=== PATIENT | female | born 1970 | race Caucasian/White ===

== ENCOUNTER 2023-12-09 09:34 | Outpatient (CLI) | payer OTHER, SELFPAY ==
--- NOTE | 2023-12-09 09:42 | ECG_ITS ---
Test Date: 2023-12-09 09:54:32 Measurements Intervals [place] Rate: 107 P: 63 [place]: 136 QRS: 42 QRSD: 97 T: 40 QT: 378 QTc: 506 Interpretive Statements SINUS TACHYCARDIA POSSIBLE LEFT ATRIAL ENLARGEMENT [-0.1mV P WAVE IN V1/V2] ABNORMAL RHYTHM ECG No previous ECG available for comparison Electronically Signed On 12-10-2023 12:54:30 CDT by Timo Viera M.D.
== END 2023-12-09 09:35 | disposition home or self-care (01) ==
LOC: ANHCARD 09:35
PROVIDERS: PCP Internal Medicine Gastroenterology; Visit Provider Anesthesiology
DX: I10 Essential (primary) hypertension (principal); R94.31 Abnormal electrocardiogram [ECG] [EKG]
CPT/HCPCS: 93005

== ENCOUNTER 2023-12-11 00:46 | Day surgery (SDC) | payer OTHER, SELFPAY ==
[2023-12-07 15:09] VITALS: BMI 29.5
--- NOTE | 2023-12-07 15:29 | PC.NURSE ---
Report to the Outpatient Waiting Room, entrance under the green pavilion located off [facility], at time _10:00AM_ on date _Monday12/11/23 . Planned Procedure Time: __12:00AM . Time changes happen often and if your time is changed the preop area will call you the afternoon before. - You and your visitor (MAX OF 2) will be asked to self-screen and do not enter if you have any COVID symptoms. - A mask is optional within the hospital at this time. Patients may have clear liquids (water, carbonated beverages, clear teas, apple juice) until 3 hours prior to surgery (9:00AM) with a maximum of 20 ounces. - No food from midnight until time of surgery - Take the following medications with a SIP of water the morning of surgery: __SERTRALINE DO NOT STOP ANY OF YOUR OTHER PRESCRIPTION MEDICATIONS PRIOR TO SURGERY ?EXCEPT THE FOLLOWING Medications to discontinue per physician NONE Date to take last dose____NONE Please no make-up, nail ivorian, hairspray, perfume, deodorant, or body powder the day of surgery. No jewelry (including any body piercings) or valuables the day of surgery, leave them at home. Please take a shower or bath the night before, or the morning of, surgery with an antibacterial soap. Wear comfortable, loose fitting clothing. - Jewelry must be removed prior to entering the operating room. Rings and piercings that are not removed may be cut off. - The hospital will not accept responsibility for valuables. - Please leave all valuables, including medications, at home the day of surgery. If you are going home after surgery, a licensed interstate bus driver must drive you home. - NO public transportation without another adult if you receive anesthesia. - We recommend that an adult stay with you for 24 hours following discharge. - We also recommend that you do not drive, make important decision, drink alcoholic beverages, or take any drugs that were not prescribed by your health care provider for at least 24 hours after your discharge time. Follow any additional instructions given to you from your surgeon. If you or anyone in your household have experienced Covid symptoms in the past week, please notify your surgeon or the nurse liaison at the phone number below for possible testing. Telephone instructions given to __HOLLIS and asked if any additional questions and then verbalized understanding. Patient advised to call surgeon office or pre surgery nurse liaison [phone] if any additional questions.
--- NOTE | 2023-12-10 23:58 | PM.IMHP ---
H&P: HPI History of Present Illness Date/Time: 12/10/23 23:58 Chief Complaint: retained IUD, desires permanent sterilization Narrative: Patient is a 53 year old female who presents for hysteroscopy with IUD removal and laparoscopic bilateral salpingectomy. She failed in office removal of IUD x2, and declines further trial of hormonal contraception. Recent bloodwork demonstrates pre-menopausal levels. Patient desires permanent sterilization with bilateral salpingectomy. R/b/a of procedure previously discussed. Review of Systems Review of Systems: All systems reviewed & are unremarkable except as noted in HPI and below PMFSH Social History Social History Smoking status: Never smoker Alcohol intake: never Substance use: never Substance use type: does not use Living arrangements: with family Spiritual care concerns: No Meds Home Medications and Allergies Home Medications Medication Instructions Recorded Confirmed Type cyclobenzaprine 10 mg tablet 10 mg PO HS 12/07/23 12/07/23 History famotidine 20 mg tablet 20 mg PO BID 12/07/23 12/07/23 History losartan 50 mg tablet 50 mg PO DAILY 12/07/23 12/07/23 History montelukast 10 mg tablet 10 mg PO DAILY 12/07/23 12/07/23 History sertraline 100 mg tablet 100 mg PO DAILY 12/07/23 12/07/23 History simvastatin 40 mg tablet 40 mg PO HS 12/07/23 12/07/23 History Allergies Allergy/AdvReac Type Severity Reaction Status Date / Time codeine Allergy Unknown Unknown Verified 12/07/23 15:29 Exam Const: General: comfortable and no acute distress HENMT: Mouth: Yes moist mucous membranes Resp: Effort & Inspection: normal respiratory effort Skin: General skin exam: normal color Extrem: General: normal to inspection Psych: Mental Status: mental status grossly normal Assessment and Plan Assessment and plan (1) IUD complication: Code(s): T83.9XXA - Unspecified complication of genitourinary prosthetic device, implant and graft, initial encounter Status: Acute Assessment and Plan: - failed in office removal of IUD x2 - will attempt hysteroscopic IUD removal - r/b/a discussed with patient (2) Encounter for sterilization: Code(s): Z30.2 - Encounter for sterilization Status: Acute Assessment and Plan: - recent bloodwork demonstrates likely premenopausal status - patient declines further hormonal contraception, desires permanent sterilization - r/b/a discussed with patient, including permanence of procedure and likely resumption of menses postoperatively - patient voices understanding and elects to proceed with hysteroscopic removal of IUD and laparoscopic bilateral salpingectomy
[2023-12-11] VITALS (8 sets, daily range): BP systolic 107–140; BP diastolic 66–99; PULSE 93–118; RESP 12–18; TEMP 36.1–36.2; O2SAT 93–100; BMI 29.9
--- NOTE | 2023-12-11 10:23 | ECG_ITS ---
Test Date: 2023-12-11 10:33:46 Measurements Intervals [place] Rate: 105 P: 47 [place]: 155 QRS: 18 QRSD: 97 T: 23 QT: 373 QTc: 494 Interpretive Statements SINUS TACHYCARDIA POSSIBLE LEFT ATRIAL ENLARGEMENT [-0.1mV P WAVE IN V1/V2] ABNORMAL RHYTHM ECG Compared to ECG 12/09/2023 09:54:32 NO DIFFERENCE Electronically Signed On 12-11-2023 15:22:54 CDT by Faustino White M.D.
--- NOTE | 2023-12-11 10:28 | P.PNAN_ITS ---
Anes - Initial Pre Proc Eval Procedure: Operation Date: 12/11/23 12:00 Proposed Procedures p Hysteroscopy with Removal of Foreign Body, Laparoscopic Bilateral Salpingectomy - Mohamud Márquez MD Date/Time: 12/11/23 10:28 Surgeon: Mohamud Márquez MD Pre Op Diagnosis: Intrauterine Contraceptive Device, SITU Patient Data Age: 53 Gender: F Height: 1.63 m Weight: 78 kg Allergies Allergy/AdvReac Type Severity Reaction Status Date / Time codeine Allergy Unknown Unknown Verified 12/07/23 15:29 Home Medications Medication Instructions Recorded Confirmed Type cyclobenzaprine 10 mg tablet 10 mg PO HS 12/07/23 12/07/23 History famotidine 20 mg tablet 20 mg PO BID 12/07/23 12/07/23 History losartan 50 mg tablet 50 mg PO DAILY 12/07/23 12/07/23 History montelukast 10 mg tablet 10 mg PO DAILY 12/07/23 12/07/23 History sertraline 100 mg tablet 100 mg PO DAILY 12/07/23 12/07/23 History simvastatin 40 mg tablet 40 mg PO HS 12/07/23 12/07/23 History Patient hx anesthesia problems: none Family hx anesthesia problems: none Results Review: All pre-operative results and documents have been reviewed as part of the pre- operative evaluation. [facility] Social History Social History Smoking status: Never smoker Alcohol intake: never Substance use: never Substance use type: does not use Living arrangements: with family Spiritual care concerns: No Anes - Eval Final PreProcedure Day of Procedure 12/11/23 10:28 Patient weight: normal Heart: regular rate and rhythm Lungs: clear to auscultation Airway: Mallampati scale and special considerations (Teeth in very poor condition, missing many upper teeth, pt reports none are loose. ) Neurological: alert and oriented Last oral intake: >/= 8 hours ASA classification: II Emergent: no Anesthetic plan: proceed Anesthesia type and monitoring: general ETT and standard monitoring Results Review: All pre-operative results and documents have been reviewed as part of the pre- operative evaluation. Informed Consent: The patient's anesthetic plan and its attendant risks and benefits were discussed with the patient/family/POA. Questions were solicited and answers provided to the satisfaction of the patient/family/POA.
[2023-12-11] MEDS: LACTATED RINGERS 1,000 ML 30 ML IV CONT ×2 (11:00→12:25)
[2023-12-11] MEDS: ACETAMINOPHEN 500 MG TABLET 1000 MG PO (11:06)
[2023-12-11] MEDS: KETOROLAC 15 MG/ML VIAL (*BKC) IV PUSH (11:06)
--- NOTE | 2023-12-11 11:12 | WPDHPUPDATE1 ---
History and Physical Update Update Date/Time: 12/11/23 11:12 History and Physical has been reviewed, including an updated exam of the patient. There are NO changes in the patient's condition. Risks, benefits, and alternatives have been discussed and questions answered. Patient agrees to proceed with procedure.
--- NOTE | 2023-12-11 11:24 | P.OP_ITS ---
Procedure Note - Detailed Date of Procedure 12/11/23 Pre-op Diagnosis retained IUD failed removal, desires permanent sterilization Post-op Diagnosis Same Procedure Performed hysteroscopy, removal of IUD, laparoscopic bilateral salpingectomy Surgeon Mohamud Márquez MD Anesthesia General Description of Procedure With IV fluids infusing, the patient was taken to the operating room. The patient was placed in supine position and SCDs were placed on the lower extremities. General anesthesia with endotracheal intubation was given. A time- out took place. The patient was placed in dorsal lithotomy position using Gab stirrups and she was prepped and draped in the usual sterile fashion. The bladder was drained of clear urine using a red rubber catheter. A bivalved speculum was then inserted into the patient's vagina. At this point, the hysteroscope was then inserted into the uterine cavity. Saline was used as the distension medium. The above findings were noted. Pictures were taken.?The IUD was grasped with polyp forceps and removed intact from the uterine cavity. An acorn manipulator was placed in the cervix, and the bivalve speculum was then removed.?The surgeon's gloves were changed and attention was turned to the abdomen. A 5 mm incision was made in the umbilicus. Under direct visualization with the scope, the umbilical port was inserted without difficulty. Another two trocars were placed under direct visualization in the left upper and lower quadrants. The patient was placed in Trendelenburg and inspection of the pelvis noted the above findings. Appropriate pictures were taken. Using the LigaSure devise, a left salpingectomy was performed in the usual fashion. Care was taken to avoid the IP ligament. The same procedure was performed on the right. The instruments were all removed from the abdomen and the CO2 gas was allowed to escape. The acorn manipulator was removed from the cervix. The tenaculum was removed and the sites were hemostatic. The three skin incisions were reapproximated with 4-0 Polysorb in a subcuticular manner, followed by skin glue. The patient tolerated the procedure well.? Sponge, lap, needle, and instrument counts were correct X3.? The patient was taken out of the dorsal lithotomy position and awakened from anesthesia and taken to the recovery room in stable condition. Estimated Blood Loss 10 Pathology Yes Complications No immediate complications Condition Stable Disposition Same day
[2023-12-11] MEDS: LIDO 1%/EPINEPHRINE 1:100,000 20 ML VIAL 10 ML INFILTRATE (11:49)
== END 2023-12-11 14:30 | disposition home or self-care (01) ==
PROVIDERS: PCP Internal Medicine Gastroenterology; Visit Provider Obstetrics & Gynecology
PROC: 0UDB8ZZ Extraction of Endometrium, Via Natural or Artificial Opening Endoscopic (ICD-10-PCS; CPT 58558; principal; 2023-12-11 12:00)
DX: Z30.2 Encounter for sterilization (principal); Z30.432 Encounter for removal of intrauterine contraceptive device
CPT/HCPCS: 58579; 58661; 88300; 88302; 93005; A9270; J1100; J1885; J2250; J2405; J2704; J3010; J7120

== ENCOUNTER 2025-06-12 18:00 | Observation (INO) | payer OTHER, SELFPAY ==
--- NOTE | ~2025-06-12 | US_ITS ---
EXAMINATION: US pelvic complete w TV, 06/13/2025 8:25 CMA HISTORY: Vaginal bleeding Comparison: None Technique: Suarez-scale and color Doppler images were obtained. Findings: Uterus: Uterus anteverted 13.4 x 3.9 x 7.6 cm. . Endometrium is thickened measuring 2 cm with areas of increased flow noted. Right Ovary:Right ovary not identified. Left Ovary: Left ovary 2.8 x 1.3 x 1.5 cm, no adnexal mass, normal flow. Free Fluid: None Impression: Abnormally thickened endometrium with areas of abnormal flow, neoplasm should be considered. Tissue sampling recommended Reviewed, dictated and finalized at location P. Impression: Abnormally thickened endometrium with areas of abnormal flow, neoplasm should b e considered. Tissue sampling recommended
[2025-06-12 15:08] VITALS: BMI 28.3
--- NOTE | 2025-06-12 15:26 | PC.NURSE ---
Provider notified of pt's arrival to hospital and her room number.
--- OUTSIDE RECORDS SUMMARY | 2025-06-12 15:31 | XMS_ITS | Clinical Summary ---
Author Organization [facility] Address [address] [place] [address] Care Team Providers Care Insulation Cupola Operator Name Role Phone [facility] Primary Care Provider Source Comments [facility],non-owned Affiliates and Associated Physician Practices is amultiple site organization consisting of ambulatory clinics and hospital sitesin [place], [place], [place]. This disclosure is being madepursuant to the Care Everywhere program and may not contain all information available regarding this patient. Last updated 18.[facility] Allergies No known active allergies Medications * Be aware that medications may not be up to date on this document. Alwaysverify current medications with the patient. famotidine (Pepcid) 40 MG tabletIndicati ons:Heartburn Take 1 (one) tablet by mouth at bedtime Reasons: Heartburn Active montelukast (Singulair) 10 MG tablet Take 1 (one) tablet by mouth at bedtime Active simvastatin (Zocor) 40 MG tabletIndicati ons:Hyperlipid emia Take 1 (one) tablet by mouth at bedtime Reasons: High Amount of Fats in the Blood Active sertraline (Zoloft) 100 MG tablet Take 1 (one) tablet by mouth once daily Active cyclobenzaprin e (Flexeril) 10 MG tablet Take 1 (one) tablet by mouth 3 times daily as needed for muscle spasms Active medroxyPROGEST ERone (Provera) 10 MG tablet Take 1 (one) tablet by mouth once daily 60 tablet 2 5 Active tranexamic acid (Lysteda) 650 MG tablet Take 2 (two) tablets by mouth 3 times daily Take two tablets every 8 hours for the first 5 days of your period 28 tablet 2 5 Active ibuprofen (Motrin) 800 MG tabletIndicati ons:Fibromylgi a Take 1 (one) tablet by mouth every 6 hours as needed for pain Reasons: Fibromylgia 06/06/20 25 Discontin ued(Tx Complete) Active Problems Problem Noted Date Diagnosed Date Vaginal bleeding 06/05/2025 Symptomatic anemia 06/05/2025 Encounters Date Type Department Care Team Description 06/05/2025 9:11 PM NON DESTRUCTIVE TESTING SUPERVISOR - 06/06/2025 4:43 PM NON DESTRUCTIVE TESTING SUPERVISOR Hospital Encounter [facility] [address] [place] [address] Dina Guillaume MD Gynecology Discharge Disposition: Home or Self Care 06/05/2025 Travel from Last 3 Months Social History Tobacco Use Types Packs/Day Years Used Date Smoking Tobacco: Never Passive Smoke Exposure: Never Smokeless Tobacco: Never Tobacco Cessation:Counseling Given: No Alcohol Use Standard Drinks/Week Comments Never 0 (1 standard drink = 0.6 oz pur e alcohol) Humiliation, Afraid, Rape, and Kick questionnair e Answer Date Recorded Within the last year, have y ou been afraid of your partner or ex-partner? No 06/05/2025 Within the last year, have y ou been humiliated or emotionally abused in other ways by your partner or ex-partner? No Within the last year, have y ou been kicked, hit, slapped, or otherwise physically hurt by your partner or ex-partner? No 06/05/2025 Within the last year, have y ou been raped or forced to have any kind of sexual activity by your partner or ex-partner? No 06/05/2025 AUDIT-C Answer Date Recorded Q1: How often do you have a drink containing alcohol? Never 06/05/2025 Q2: How many drinks containi ng alcohol do you have on a typical day when you are drinking? Patient does not drink Q3: How often do you have si x or more drinks on one occasion? Never 06/05/2025 [facility] - Occupational Stress Questionnaire Answer Date Recorded Do you feel stress - tense, restless, nervous, or anxious, or unable to sleep at night because your mind is troubled all the time - these days? To some extent 06/05/2025 Hunger Vital Sign Answer Date Recorded Within the past 12 months, y ou worried that your food would run out before you got the money to buy more. Never true 06/05/20 25 Within the past 12 months, t he food you bought just didn't last and you didn't have money to get more. Never true 06/05/2025 PRAPARE - Transportation Answer Date Re corded In the past 12 months, has l ack of transportation kept you from medical appointments or from getting medications? No 05/26 In the past 12 months, has l ack of transportation kept you from meetings, work, or from getting things needed for daily living? No 06/05/2025 Housing Stability Vital Sign Answer Asif e Recorded In the last 12 months, was t here a time when you were not able to pay the mortgage or rent on time? No 06/05/2025 In the past 12 months, how m any times have you moved where you were living? 0 06/05/2025 At any time in the past 12 m [facility], were you homeless or living in a group home (including now)? No 06/05/2025 [facility] Utilities Answer Date Recorded In the past 12 months has th e electric, gas, oil, or water company threatened to shut off services in your home? No 06/05/2025 Comments Unknown Sex and Gender Information Value Date Recorded Sex Assigned at Not on file Legal Sex Female 7:03 AM CDT Gender Identity Not on file Sexual Orientation Not on file Last Filed Vital Signs Vital Sign Reading Time Taken Comments Blood Pressure 117/84 06/06/2025 12:17 PM NON DESTRUCTIVE TESTING SUPERVISOR Pulse 116 06/06/2025 12:17 PM NON DESTRUCTIVE TESTING SUPERVISOR Temperature 36.9 C (98.4 F) 06/06/2025 12:17 PM NON DESTRUCTIVE TESTING SUPERVISOR Respiratory Rate 18 06/06/2025 12:17 PM NON DESTRUCTIVE TESTING SUPERVISOR Oxygen Saturation 95% 06/06/2025 12:17 PM NON DESTRUCTIVE TESTING SUPERVISOR Inhaled Oxygen Concentration - - Weight 77.2 kg (170 lb 4.8 oz) 06/05/2025 9:23 P M NON DESTRUCTIVE TESTING SUPERVISOR Height 165 cm (5' 4.96) 06/05/2025 9:23 PM NON DESTRUCTIVE TESTING SUPERVISOR Body Mass Index 28.37 06/05/2025 9:23 PM NON DESTRUCTIVE TESTING SUPERVISOR Plan of Treatment Health Maintenance Due Date Last Done Comments COLOGUARD (AGES 45-75) - COL ON CA SCREENING 1972 COLON MONITORING 1972 COLONOSCOPY - COLON CA SCREENING 1972 CT COLONOGRAPHY - COLON CA SCREENING 1972 Colorectal Cancer Screening 1972 FIT - COLON CA SCREENING 1972 FLEX SIG - COLON CA SCREENING 1972 MAMMOGRAM 1972 HIV SCREENING 1987 HEPATITIS C SCREENING 03/05/1990 DTAP/TDAP/TD VACCINES (1 - Tdap) 1991 HEPATITIS B VACCINE (1 of 3 - 19+ 3-dose series) 1991 PAP SMEAR 1993 PNEUMOCOCCAL VACCINE 50+ (1 of 1 - PCV) 2022 ZOSTER VACCINE (1 of 2) 2022 DEPRESSION SCREENING 06/26/2024 COVID-19 VACCINE (1 - 2024-2 6 season) 2025 INFLUENZA VACCINE (#1) 2025 HIB VACCINE Aged Out No longer eligi ble based on patient's age to complete this topic HPV VACCINE Aged Out No longer eligi ble based on patient's age to complete this topic MENINGOCOCCAL (Group B) VACC INE SHARED DECISION-MAKING Aged Out No longer eligibl e based on patient's age to complete this topic MENINGOCOCCAL GROUPS A/C/Y/W VACCINE Aged Out No longer eligible b ased on patient's age to complete this topic Procedures Procedure Name Priority Date/Time Associated Diagnosis Comments CBC W AUTO DIFFERENTIAL Routine 06/06/2025 11:52 AM NON DESTRUCTIVE TESTING SUPERVISOR US PELVIS W TRANSVAG NON OB Routine 06/06/2025 10:26 AM NON DESTRUCTIVE TESTING SUPERVISOR Vaginal bleeding TYPE + SCREEN PANEL STAT 06/06/2025 2 :17 AM NON DESTRUCTIVE TESTING SUPERVISOR PREPARE RBC LEUKOREDUCED UNIT Routine 06/06/2025 2:17 AM NON DESTRUCTIVE TESTING SUPERVISOR BLOOD TYPE VERIFICATION Routine 06/06/2025 12:25 AM NON DESTRUCTIVE TESTING SUPERVISOR COAGULATION PANEL W D-DIMER STAT 06/06/2025 12:25 AM NON DESTRUCTIVE TESTING SUPERVISOR CBC W/O DIFFERENTIAL AM Draw 06/06/2025 12:25 AM NON DESTRUCTIVE TESTING SUPERVISOR from Last 3 Months Results * (ABNORMAL) CBC W AUTO DIFFERENTIAL (06/06/2025 11:52 AM NON DESTRUCTIVE TESTING SUPERVISOR) WBC 12.1(H) 4.0 - 10.7 x10E9/L 06/06/2025 12:38 PM NON DESTRUCTIVE TESTING SUPERVISOR [facility] RBC Count 3.13(L) 3.90 - 5.20 x10E12/L 06/06/2025 12:38 PM NON DESTRUCTIVE TESTING SUPERVISOR [facility] Hemoglobin 8.2(L) 11.9 - 15.8 g/dL 06/06/2025 12:38 PM NON DESTRUCTIVE TESTING SUPERVISOR [facility] Hematocrit 25.2(L) 34.8 - 46.1 % 06/06/2025 12:38 PM NON DESTRUCTIVE TESTING SUPERVISOR [facility] MCV 80.5 80.0 - 98.0 fL 06/06/2025 12:38 PM NON DESTRUCTIVE TESTING SUPERVISOR [facility] MCH 26.2(L) 26.7 - 33.6 pg 06/06/2025 12:38 PM NON DESTRUCTIVE TESTING SUPERVISOR [facility] MCHC 32.5 31.7 - 36.3 g/dL 06/06/2025 12:38 PM NON DESTRUCTIVE TESTING SUPERVISOR [facility] RDW-CV 18.0(H) 11.3 - 14.8 % 06/06/2025 12:38 PM NON DESTRUCTIVE TESTING SUPERVISOR [facility] Platelet Count 273 150 - 420 x10E9/L 06/06/2025 12:38 PM NON DESTRUCTIVE TESTING SUPERVISOR [facility] MPV 10.1 7.8 - 11.4 fL 06/06/2025 12:38 PM NON DESTRUCTIVE TESTING SUPERVISOR [facility] Neutrophil % 73.8 41.0 - 74.0 % 06/06/2025 12:38 PM NON DESTRUCTIVE TESTING SUPERVISOR [facility] Lymphocyte % 17.7 17.0 - 47.0 % 06/06/2025 12:38 PM NON DESTRUCTIVE TESTING SUPERVISOR [facility] Monocyte % 6.8 3.0 - 11.0 % 06/06/2025 12:38 PM NON DESTRUCTIVE TESTING SUPERVISOR [facility] Eosinophil % 0.8 0.0 - 7.0 % 06/06/2025 12:38 PM NON DESTRUCTIVE TESTING SUPERVISOR [facility] Basophil % 0.2 0.0 - 1.6 % 06/06/2025 12:38 PM NON DESTRUCTIVE TESTING SUPERVISOR [facility] Immature Granulocytes % 0.7 0.0 - 1.0 % 06/06/2025 12:38 PM NON DESTRUCTIVE TESTING SUPERVISOR [facility] Neutrophil Absolute 8.90(H) 1.60 - 7.50 x10E9/L 06/06/2025 12:38 PM NON DESTRUCTIVE TESTING SUPERVISOR [facility] Lymphocyte Absolute 2.13 1.00 - 4.40 x10E9/L 06/06/2025 12:38 PM NON DESTRUCTIVE TESTING SUPERVISOR [facility] Monocyte Absolute 0.82 0.15 - 1.00 x10E9/L 06/06/2025 12:38 PM NON DESTRUCTIVE TESTING SUPERVISOR [facility] Eosinophil Absolute 0.10 0.00 - 0.60 x10E9/L 06/06/2025 12:38 PM NON DESTRUCTIVE TESTING SUPERVISOR [facility] Basophil Absolute 0.03 0.00 - 0.13 x10E9/L 06/06/2025 12:38 PM NON DESTRUCTIVE TESTING SUPERVISOR [facility] Blood BLOOD SPECIMEN / Unknown Lab Venipuncture / Unknown 06/06/2025 11:52 AM NON DESTRUCTIVE TESTING SUPERVISOR 06/06/2025 12:31 PM NON DESTRUCTIVE TESTING SUPERVISOR us Dina Guillaume MD LAB - HEMATOLOGY ORDERABLES Fin al Result Performing Organization Address City/State/[facility] Co de Phone Number [facility] [address] [phone] * US Pelvis W Transvag Non Ob (06/06/2025 10:26 AM NON DESTRUCTIVE TESTING SUPERVISOR) Anatomical Region Laterality Modality Pelvis Ultrasound 06/06/2025 10:3 4 AM NON DESTRUCTIVE TESTING SUPERVISOR Impressions 06/06/2025 10:37 AM NON DESTRUCTIVE TESTING SUPERVISOR IMPRESSION: Within normal limits. > Interpreting Provider: Alexsander Duggan MD on 06/06/2025 10:37 AM Narrative 06/06/2025 10:37 AM NON DESTRUCTIVE TESTING SUPERVISOR PROCEDURE: US PELVIS W TRANSVAG NON OB DATE/TIME OF EXAM: 06/06/2025 10:26 AM CLINICAL INFORMATION: None relevant/not provided if blank. Indication: N93.9: Vaginal bleeding EXAMINATIONS: 1. TRANSABDOMINAL AND ENDOVAGINAL PELVIC ULTRASOUND 2. LIMITED COLOR DOPPLER AND LIMITED SPECTRAL DOPPLER IMAGING HISTORY: This is a 55-year-old whose LMP was 06/02/2025 and complains of heavy menstrual bleeding. N93.9: Vaginal bleeding TECHNIQUE: Real time transabdominal and transvaginal pelvic ultrasound was performed by the optical effects layout person with DICOM image capture. Grayscale images were obtained; additionally, Color Doppler and pulse wave Spectral Doppler interrogation was performed and interpreted. COMPARISON: None. CORRELATION: None. FINDINGS: The bladder is appropriately distended and appears unremarkable on transabdominal images providing a proper window for imaging of the pelvis. The anteverted uterus is normal on the transabdominal images. There are multiple large nabothian cysts in the cervix, best seen on the transabdominal images. The ovaries and adnexa are not well seen on the transabdominal images. On the transvaginal images, the myometrium is normal without visible leiomyomata. The cervix is closed and appears normal. There is no fluid in the uterine cavity or in the cervical canal. The thickness of endometrial stripe is normal and the endometrial stripe demonstrates homogeneous appearance. Both ovaries are visible on the transvaginal images and appear normal containing multiple subcentimeter follicles. The largest follicle is on the left side measuring 1.2 x 0.8 x 0.8 cm with anechoic appearance. There is no free fluid in the pelvis. Measurements: Uterus: 14.7 x 5.7 x 8.6 cm Thickness of endometrial stripe: 2.9 mm Right ovary: 2.5 x 1.1 x 1.6 cm Left ovary: 3.3 x 1.3 x 1.3 cm Procedure Note Alexsander Duggan MD - 06/06/2025 PROCEDURE: US PELVIS W TRANSVAG NON OB DATE/TIME OF EXAM: 06/06/2025 10:26 AM CLINICAL INFORMATION: None relevant/not provided if blank. Indication: N93.9: Vaginal bleeding EXAMINATIONS: 1. TRANSABDOMINAL AND ENDOVAGINAL PELVIC ULTRASOUND 2. LIMITED COLOR DOPPLER AND LIMITED SPECTRAL DOPPLER IMAGING HISTORY: This is a 55-year-old whose LMP was 06/02/2025 andcomplains of heavy menstrual bleeding. N93.9: Vaginal bleeding TECHNIQUE: Real time transabdominal and transvaginal pelvic ultrasoundwas performed by the optical effects layout person with DICOM image capture. Grayscale images were obtained; additionally, Color Doppler and pulse wave SpectralDoppler interrogation was performed and interpreted. COMPARISON: None. CORRELATION: None. FINDINGS: The bladder is appropriately distended and appears unremarkable on transabdominal images providing a proper window for imaging of thepelvis. The anteverted uterus is normal on the transabdominal images. There are multiple large nabothian cysts in the cervix, best seen on the transabdominal images. The ovaries and adnexa are not well seen on the transabdominal images. On the transvaginal images, the myometrium is normal without visible leiomyomata. The cervix is closed and appears normal. There is no fluidin the uterine cavity or in the cervical canal. The thickness ofendometrial stripe is normal and the endometrial stripe demonstrates homogeneous appearance. Both ovaries are visible on the transvaginal images and appear normal containing multiple subcentimeter follicles. The largest follicle is onthe left side measuring 1.2 x 0.8 x 0.8 cm with anechoic appearance. Thereis no free fluid in the pelvis. Measurements: Uterus: 14.7 x 5.7 x 8.6 cm Thickness of endometrial stripe: 2.9 mm Right ovary: 2.5 x 1.1 x 1.6 cm Left ovary: 3.3 x 1.3 x 1.3 cm IMPRESSION: Within normal limits. > Interpreting Provider: Alexsander Duggan MD on 06/06/2025 10:37 AM Dina Guillaume MD US ORDERABLES Final Result * TRANSFUSE RED BLOOD CELL LEUKOREDUCED UNIT(S) (06/06/2025 7:21 AM NON DESTRUCTIVE TESTING SUPERVISOR) us Dina Guillaume MD NURSING - BLOOD PROD TRANSFUSIO N Final Result * PREPARE (CROSSMATCH) RBC UNIT(S), 1 Units (06/06/2025 2:17 AM NON DESTRUCTIVE TESTING SUPERVISOR) Unit Description AS1 LR PRBC [facility] Unit ABO A [facility] Unit Rh POS [facility] Product Number R02 [facility] Unit Donor # [id number] [facility] Unit Status transfused [facility] Product Code [id number] [facility] Blood Type Barcode 6200 [facility] Expiration Date [id number] [facility] Blood Bank BLOOD SPECIMEN / Unknown 06/06/2025 2:17 AM NON DESTRUCTIVE TESTING SUPERVISOR 06/06/2025 3:07 AM NON DESTRUCTIVE TESTING SUPERVISOR Dina Guillaume MD LAB - BLOOD BANK ORDERABLES Fin al Result Performing Organization Address City/[facility]/ZIP Co de Phone Number [facility] [address] [place] [address] * TYPE + SCREEN PANEL (06/06/2025 2:17 AM NON DESTRUCTIVE TESTING SUPERVISOR) ABO Rh A POS 06/06/2025 3:45 AM NON DESTRUCTIVE TESTING SUPERVISOR [facility] Comment:History checked. Antibody Screen NEG 3:45 AM NON DESTRUCTIVE TESTING SUPERVISOR [facility] Blood Bank BLOOD SPECIMEN / Unknown Lab Venipuncture / Unknown 06/06/2025 2:17 AM NON DESTRUCTIVE TESTING SUPERVISOR 06/06/2025 3:07 AM NON DESTRUCTIVE TESTING SUPERVISOR Dina Guillaume MD LAB - BLOOD BANK ORDERABLES Fin al Result Performing Organization Address [facility] Co de Phone Number [facility] [address] [place] [address] * BLOOD TYPE VERIFICATION (06/06/2025 12:25 AM NON DESTRUCTIVE TESTING SUPERVISOR) ABO Rh A POS 06/06/2025 3:3 4 AM NON DESTRUCTIVE TESTING SUPERVISOR [facility] Blood Bank BLOOD SPECIMEN / Unknown Lab Venipuncture / Unknown 06/06/2025 12:25 AM NON DESTRUCTIVE TESTING SUPERVISOR 06/06/2025 1:56 AM NON DESTRUCTIVE TESTING SUPERVISOR Dina Guillaume MD LAB - BLOOD BANK ORDERABLES Fin al Result Performing Organization Address City/[facility] Co de Phone Number [facility] [address] [place] [address], [place] [phone] * (ABNORMAL) COAGULATION PANEL W D-DIMER (06/06/2025 12:25 AM [facility]) PT 16.1(H) 12.1 - 14.8 sec 06/06/2025 2:[address] [facility] INR 1.3(H) 0.9 - 1.1 06/06/2025 2:[address] [facility] PTT 24.0 23.0 - 38.4 sec 06/06/2025 2:[address] [facility] Fibrinogen 321 200 - 400 mg/dL 06/06/2025 2:[address] [facility] D-Dimer 0.66(H) 0.27 - 0.50 ug/mL FEU 06/06/2025 2:[address] [facility] Platelet Count 289 150 - 420 x10E9/L 06/06/2025 2:[address] [facility] Blood BLOOD SPECIMEN / Unknown Lab Venipuncture / Unknown 06/06/2025 12:25 AM NON DESTRUCTIVE TESTING SUPERVISOR 06/06/2025 1:35 AM [facility] - 06/06/2025 2:21 AM [facility] Conventional Warfarin Anticoagulant Therapy INR Reference Range: 2.0-3.0 Intensive Warfarin Anticoagulant Therapy INR Reference Range: 2.5-3.5 Heparin Therapeutic Range for PTT: 69.0 - 110.0 seconds. In the absence of clinical symptoms, a value less than or equal to 0.5 mcg/mL FEU significantly decreases the probability of PE/DVT (negative predictive value >95%). 1 mcg/ml FEU = 1 Fibrinogen Equivalent Unit (approximates 0.5 mcg/mL of D- dimer). ISTH DIAGNOSTIC SCORING SYSTEM FOR DIC ---- Score 0 1 2 3 Platelet Count (x10^3/uL) > 100 <100 < 50 N/A PT Prolongation above Upper limit of normal 0-3 3-6 > 6 N/A Range (seconds) Fibrinogen (mg/dL) >100 < 100 N/A N/A D-Dimer (mcg/mL FEU) < 0.50 N/A 0.50-5.0 > 5 Calculate Cumulative Score: > or = 5: compatible with overt DIC < 5: suggestive for non-overt DIC N/A = Non applicable Reference: Br. J. Haematol. 145:24-33,2009. us Dina Guillaume MD LAB - COAGULATION ORDERABLES Fi nal Result [facility] [address] [place] [address] * (ABNORMAL) CBC W/O DIFFERENTIAL (06/06/2025 12:25 AM [facility]) WBC 13.9(H) 4.0 - 10.7 x10E9/L 06/06/2025 1:[address] [facility] RBC Count 2.74(L) 3.90 - 5.20 x10E12/L 06/06/2025 1:[address] [facility] Hemoglobin 7.1(L) 11.9 - 15.8 g/dL 06/06/2025 1:[address] [facility] Hematocrit 22.9(L) 34.8 - 46.1 % 06/06/2025 1:[address] [facility] MCV 83.6 80.0 - 98.0 fL 06/06/2025 1:[address] [facility] MCH 25.9(L) 26.7 - 33.6 pg 06/06/2025 1:[address] [facility] MCHC 31.0(L) 31.7 - 36.3 g/dL 06/06/2025 1:[address] [facility] RDW-CV 17.2(H) 11.3 - 14.8 % 06/06/2025 1:[address] [facility] Platelet Count 285 150 - 420 x10E9/L 06/06/2025 1:[address] [facility] MPV 10.7 7.8 - 11.4 fL 06/06/2025 1:[address] [facility] Blood BLOOD SPECIMEN / Unknown Lab Venipuncture / Unknown 06/06/2025 12:25 AM NON DESTRUCTIVE TESTING SUPERVISOR 06/06/2025 1:35 AM [facility] us Dina Guillaume MD LAB - HEMATOLOGY ORDERABLES Fin al Result [facility] [address] [place] [address] from Last 3 Months Insurance [employer] [facility] [employer] * Guarantor: HOLLIS CURTIS Relation to Patient Date of Phone Billing Address Personal/Family [address] [place], [place] [employer] SELF PAY NO INSURANCE Member Subscriber Plan / Payer (Ef fective for All Dates) Name:Hollis Curtis Member ID:Not on file Relation to Subscriber:Not on file Name:HOLLIS CURTIS Subscriber ID:Not on file Address: [address] [place] [address] Payer ID:Not on file Group ID:Not on file Type:Self Pay Address: [place], [place] * Guarantor: HOLLIS CURTIS Account Type Relation to Patient Date of Phone Billing Address Personal/Family [address] [place], [place] [employer] SELF PAY NO INSURANCE Member Subscriber Plan / Payer (Ef fective for All Dates) Name:Hollis Curits Member ID:Not on file Relation to Subscriber:Not on file Name:HOLLIS CURTIS Subscriber ID:Not on file Address: [address] [place] [address] Payer ID:Not on file Group ID:Not on file Type:Self Pay Address: [place], [place] * Guarantor: HOLLIS CURTIS Account Type Relation to Patient Date of Phone Billing Address Personal/Family [address] [place] [address] [employer] SELF PAY NO INSURANCE Member Subscriber Plan / Payer (Ef fective for All Dates) Name:Hollis Curtis Member ID:Not on file Relation to Subscriber:Not on file Name:HOLLIS CURTIS Subscriber ID:Not on file Address: [address] [place] [address] Payer ID:Not on file Group ID:Not on file Type:Self Pay Address: [place], [place] * Guarantor: HOLLIS CURTIS Account Type Relation to Patient Date of Phone Billing Address Personal/Family [address] [place] [address] Advance Directives * Full Code (Latest Code Status on File) Date Activated Date Inactivated Comments 06/05/2025 9:32 PM 06/06/2025 5:53 PM Care Teams Insulation Cupola Operator Relationship Specialty Start Date End Date [facility] [address] [place] [address] PCP - General Family Medicine 06/05/25
--- OUTSIDE RECORDS SUMMARY | 2025-06-12 15:32 | XMS_ITS | Data Portability ---
Author Organization [facility] Address [address] [place] [address] Care Team Providers Care Operations/Dispatch Name Role Phone BAMBI FRANK Primary Care Provider Assessment Encounter Date Assessment Date Assessment LastModified by Organization Details LastModified Time 04/11/2025 04/11/2025 Annual gynecological exam performed. Patient will come back in a year unless there are new symptoms. [email or web address] Not available 04/11/2025 11:34:52 Plan of Treatment Reminders Order Date Submit Date Provider Last Modified By Organization Details Last Modified Time Details Appointments CONSULTAT ION 2024 10:00A Christina STONE MD Not available Not available Not available Lab hormone panel, serum or plasma 2023 024 [facility] (Lab), [address], [place], [address], 10/12/2023 04:57:05 Referral None recorded. Procedures None recorded. Surgeries hysterosc opy, removal of foreign body (SURG) 2023 024 [id number] [facility], [address], [place], [address], 11/09/2023 10:17:33 salpingec glen, laparosco pic (SURG) 2023 024 [id number] [facility], [address], [place], [address], 11/17/2023 17:24:28 Imaging MAMMO, screening , digital, bilateral 10/17/ 2025 10/17/2 025 [facility] (Imaging), [address], [place], [address], 04/18/2025 04:07:52 Medication Orders norethind jean acetate 5 mg tablet 2024 025 [email or web address] [id number], [address], [place], [address], 04/11/2025 13:58:59 Patient TargetsNo targets recorded. Patient InstructionsNo instructions recorded. Reason for Referral None Reported. Results Created Date Observation Date Name Description Value Unit Range Abnormal Flag Note LastModifiedBy Organization Detail LastModifiedTime 10/11/1910/11/2023 FSH, LH, ESTRA DIOL estradiol 337.0 pg/mL This assay was perfo rmed using [employer] reage nts and test kits. Value s obtai roni with other assay metho ds or kits canno t be used inter alvaraod eay . Femal e Estra diol Range s: Folli cular phasE 12.4- 233 pg/mL Ovula tion phasE 41.0- 398 pg/mL Lutea l phasE 22.3- 341 pg/mL Postm enopa usal <5-13 8 pg/mL Healt hy Pregn ant Women 1st Trime ster 154-3 243 pg/mL 2nd Trime ster 1561- 55737 pg/mL 3rd Trime ster 8525- >3000 0 pg/mL Not Available [facility] (Lab) [address], [place], [address], 10/12/2023 04:57:05 10/11/19 24 10/11/2023 FSH, LH, ESTRA DIOL FSH 7.7 mIU/m L This assay was perfo rmed using [employer] reage nts and test kits. Value s obtai roin with other assay metho ds or kits canno t be used inter alvarado eably . Femal es Folli cular : 3.5-1 2.5 mIU/m L Ovula tion: 4.7-2 1.5 mIU/m L Lutea l: 1.7-7 .7 mIU/m L Postm enopa use: 25.8- 134.8 mIU/m L Not Available [facility] (Lab) [address], [place], [address], 10/12/2023 04:57:05 10/11/19 24 10/11/2023 FSH, LH, ESTRA DIOL LH 19.8 mIU/m L This assay was perfo rmed using [employer] reage nts and test kits. Value s obtai roni with other assay metho ds or kits canno t be used inter alvarado eably . Femal es Mid-F ollic ular: 2.4-1 2.6 mIU/m L Mid-C ycle: 14.0- 95.6 mIU/m L Mid-L uteal : 1.0-1 1.4 mIU/m L Postm enopa use: 7.7-5 8.5 mIU/m L Not Available [facility] (Lab) [address], [place], [address], 10/12/2023 04:57:05 10/11/19 24 10/11/2023 CT/GC AND TRICH OMONA S VAGIN NEETA (RRNA ), SWAB chlamydia trachomatis, PCR Negati ve negati ve Not Available [facility] (Lab) [address], [place], [address], 10/12/2023 18:51:00 10/11/19 24 10/11/2023 CT/GC AND TRICH OMONA S VAGIN NEETA (RRNA ), SWAB neisseria gonorrhoeae, PCR Negati ve negati ve Not Available [facility] (Lab) [address], [place], [address], 10/12/2023 18:51:00 10/11/19 24 10/11/2023 CT/GC AND TRICH OMONA S VAGIN NEETA (RRNA ), SWAB trichomonas vaginalis ribosomal RNA (rrna) Negati ve negati ve Not Available [facility] (Lab) [address], [place], [address], 10/12/2023 18:51:00 10/12/19 24 US, pelvi s No observ ation record ed. Not Available 10/18 09:04:13 10/12/19 24 US, pelvi s No observ ation record ed. [email or web address] Not Available 10/18 09:04:12 10/12/19 24 US, pelvi s No observ ation record ed. [email or web address] Not Available 10/18 09:04:11 Result Notes None recorded. Problems Name Problem SNOMED Code Status Onset Date Resolution Date Notes Provider Name and Address Organization Details Recorded Time Essential hypertension 53157544 Active 2023 ALESSANDRA MARTIN MD [address], [place], [address], [facility] 21:13:06 Depressive disorder 59109093 Active 2023 ALESSANDRA MARTIN MD [address], [place], [address], [facility] 21:13:18 Problem Notes None recorded. Procedures Surgical History Date Name Laterality Status Provider Name and Address Organization Details Recorded Time 12/11/19 24 Hysteroscopy completed [facility] 12/18/2023 10:07:56 12/11/19 24 laparoscopic bilateral salpingo-oophorecto my completed [facility] 12/18/2023 10:08:09 07/27/19 24 Date of Last Pap Smear completed [facility] 10/11/2023 12:41:48 07/27/19 24 Date of Last Mammogram completed [facility] 10/11/2023 12:42:36 06/26/19 23 Date of Last Colonoscopy completed [facility] 10/11/2023 12:43:32 06/26/19 14 Cholecystectomy completed [facility] 10/11/2023 12:50:04 06/26/19 07 lithotripsy completed [facility] 10/11/2023 12:49:50 06/26/19 00 Carpal tunnel surgery completed [facility] 10/11/2023 12:49:13 Imaging Results None recorded. Procedure Notes None recorded. Medical Equipment None Reported. Allergies Allergen ID Allergen Name Allergen Category Reaction Reaction Severity Criticality Documentation Date Start Date Code Code System Note Provider Name and Address Organization Details Recorded Time 57868 codeine medicatio n Not available Not available high 04/11/2025 2670 RxNorm Jodee Nelson [facility] 11:36:18 Medications Name Sig Start Date Stop Date Status Note LastModified by Organization Details LastModified Time losartan 50 mg tablet TAKE 1 TABLET BY MOUTH EVERY DAY IN THE MORNING active Not Available Not Available No t Available cyclobenzap rine 10 mg tablet TAKE 1 TABLET BY MOUTH EVERYDAY AT BEDTIME active Not Available Not Available No t Available medroxyprog esterone 10 mg tablet TAKE 1 TABLET BY MOUTH EVERY DAY active Not Available Not Available No t Available ibuprofen 800 mg tablet TAKE 1 TABLET 3 TIMES A DAY BY ORAL ROUTE WITH MEAL(S) FOR 30 DAYS. active Not Available Not Available No t Available hydrocodone 5 mg-acetamin ophen 325 mg tablet TAKE 1 TABLET BY MOUTH EVERY 4 HOURS NEEDED FOR PAIN RATED 4-6 04/11 completed Not Available Not Available Not Available famotidine 40 mg tablet TAKE 1 TABLET BY MOUTH EVERY DAY active Not Available Not Available No t Available sertraline 100 mg tablet TAKE 1 TABLET BY MOUTH EVERY DAY IN THE MORNING active Not Available Not Available No t Available triamcinolo ne acetonide 0.5 % topical ointment APPLY TO AFFECTED AREA TWICE A DAY 04/11 completed Not Available Not Available Not Available metronidazo le 500 mg tablet TAKE 1 TABLET BY MOUTH TWICE A DAY FOR 7 DAYS 10/10 completed Not Available Not Available Not Available sulfamethox azole 800 mg-trimetho prim 160 mg tablet TAKE 1 TABLET BY MOUTH EVERY 12 HOURS 10/10 completed Not Available Not Available Not Available simvastatin 40 mg tablet TAKE 1 TABLET BY MOUTH EVERY DAY IN THE EVENING active Not Available Not Available No t Available famotidine 20 mg tablet TAKE 1 TABLET BY MOUTH TWICE A DAY *NEED APPOINTME NT FOR ADDITIONA L REFILLS. 04/11 completed Not Available Not Available Not Available misoprostol 200 mcg tablet INSERT 1 TABLET VAGINALLY 4 HOURS PRIOR TO SURGERY 04/11 completed Not Available Not Available Not Available montelukast 10 mg tablet TAKE 1 TABLET EVERY DAY BY ORAL ROUTE IN THE MORNING. active Not Available Not Available No t Available mupirocin 2 % topical ointment APPLY 1 GRAM ONTO THE AFFECTED AREA(S) ON THE SKIN 4 TIMES DAILY 10 MINS AFTER THE TRIAMCINO LONE 04/11 completed Not Available Not Available Not Available norethindro ne acetate 5 mg tablet TAKE 1 TABLET BY MOUTH EVERY DAY active Not Available Not Available No t Available methylpredn isolone 4 mg tablets in a dose pack TAKE 6 TABLETS ON DAY 1 DIRECTED ON PACKAGE AND DECREASE BY 1 TAB EACH DAY FOR A TOTAL OF 6 DAYS active Not Available Not Available No t Available amoxicillin 875 mg-potassiu m clavulanate 125 mg tablet TAKE 1 TABLET BY MOUTH TWO TIMES A DAY FOR 7 DAYS 01/19 completed Not Available Not Available Not Available chlorhexidi ne gluconate 0.12 % mouthwash SWISH AND SPIT 15 ML BY MOUTH TWICE DAILY active Not Available Not Available No t Available tranexamic acid 650 mg tablet TAKE 2 TABLETS BY MOUTH 3 TIMES DAILY FOR THE FIRST 5 DAYS OF YOUR PERIOD. *NOT COVERED UNDER INS active Not Available Not Available No t Available Vitals Date Recorded Body height Body mass index (BMI) Body weight Systolic And Diastolic Provider Name and Address Organization Details Last Updated DateTime 10/11/2023 162.56 cm 29.7 kg/m2 12982.48 g 139/82 mm[Hg] Symone Dangelo [facility] 10/11/2023 12:40:55 Date Recorded Body height Body mass index (BMI) Body weight Systolic And Diastolic Provider Name and Address Organization Details Last Updated DateTime 10/18/2023 162.56 cm 29.8 kg/m2 74929.35 g 143/89 mm[Hg] Delmis Coolmonse [facility] 10/18/2023 15:51:54 Date Recorded Body height Body mass index (BMI) Body weight Systolic And Diastolic Provider Name and Address Organization Details Last Updated DateTime 12/18/2023 162.56 cm 29.9 kg/m2 31621.07 g 140/84 mm[Hg] Bety Fine [facility] 12/18/2023 10:07:11 Date Recorded Body height Body mass index (BMI) Body weight Systolic And Diastolic Provider Name and Address Organization Details Last Updated DateTime 04/11/2025 162.56 cm 28.3 kg/m2 19080.74 g 143/80 mm[Hg] Jodee [facility] 04/11/2025 11:36:02 Date Recorded Body height Body mass index (BMI) Body weight Systolic And Diastolic Provider Name and Address Organization Details Last Updated DateTime 06/11/2025 162.56 cm 28.3 kg/m2 82223.74 g 120/80 mm[Hg] Jodee [facility] 06/11/2025 12:17:29 Social History Question Answer Notes LastModified by Organizat ion Details LastModified Time Tobacco Smoking Status Never Smoker Symone pennington, [facility] 10/11/2023 12:47:17 Are You Blind Or Do You Have Difficulty Seeing? No Information n ot available 10/11/2023 What Is Your Level Of Caffeine Consumption? Moderate Information not available 10/11/2023 In The 14 Days Before Symptom Onset, Have You Had Close Contact With A Laboratory-confirm ed COVID-19 While That Case Was Ill? No Information n ot available 10/11/2023 In The 14 Days Before Symptom Onset, Have You Had Close Contact With A Person Who Is Under Investigation For COVID-19 While That Person Was Ill? No Information not available 10/11/2023 Have You Been To An Area Known To Be High Risk For COVID-19? No Information not available 10/11/2023 Are You Deaf Or Do You Have Serious Difficulty Hearing? No Information not available 10/11/2023 What Is The Highest Grade Or Level Of School You Have Completed Or The Highest Degree You Have Received? [id number] Information not available 10/11/2023 Are There Any Guns Present In Your Home? No Information not available 10/11/2023 Do You Use Protection During Sex? No Information not available 10/11/2023 Do You Use Your Seat Belt Or Car Seat Routinely? Yes Information not available 10/11/2023 Are You Sexually Active? Yes Information not available 10/11/2023 Do You Have Smoke And Carbon Monoxide Detectors In Your Home? Yes Information not available 10/11/2023 Do You Use Sunscreen Routinely? No Information not available 10/11/2023 Do You Have Difficulty Walking Or Climbing Stairs? No Information not available 10/11/2023 Sex: Unknown Functional Status Question Answer Note LastModified by Organizat ion Details LastModified Time Do you use any illicit or recreational drugs? No Information not available 10/11/2023 What is your level of alcohol consumption? None Information not available 10/11/2023 Are you currently employed? No Information not available 10/11/2023 Are you able to walk independently without assistance or assistive devices? YESWOREST Information not available 10/11/2023 Are you able to care for yourself independently? Yes Information not available 10/11/2023 Do you have difficulty dressing, bathing, grooming, or toileting? No Information not available 10/11/2023 Mental Status Question Answer Note LastModified by Organization D etails LastModified Time Do you feel stressed (tense, restless, nervous, or anxious, or unable to sleep at night)? [id number] Information not available 10/11/2023 Family History Relationship Description Onset Age of this Age Resolved Age Notes LastModified by Organization Details LastModified Time Brother Diabetes mellitus Not available 2023 12:46:11 Mother Diabetes mellitus Not available 2023 12:46:11 Mother Hypercholest erolemia Not available 2023 12:46:37 Mother Hypertensive disorder Not available 2023 12:46:57 Father Hypercholest erolemia Not available 2023 12:46:37 Father Hypertensive disorder Not available 2023 12:46:57 Medical History Condition Response Allergies (Food, seasonal, environmental ) N Other N Blood Transfusion N Drug/Latex Allergies/Reactions N Breast Cancer N Dermatologic Disorders N Lung Disease N Defects or Inherited Disease N Breast Problem N Gestational Diabetes N Hematologic disorders N Anesthesia Complications N History of STI N Deep Vein Thrombosis N Polycystic ovary syndrome N Anxiety Disorder Y Autoimmune disease N Arthritis N Infertility N Polyps N Acid Reflux (GERD) N History of abnormal pap N Cancer N Stroke N Varicosities N Neurologic/Epilepsy N Endometriosis N High Cholesterol Y Headaches N Fibromyalgia N Kidney Disease N Heart Problems N Kidney or Bladder Problems N Thyroid Problems N GI Problems Y Eating Disorder N Anemia N Art (IVF or FET) N Psychiatric Illness N Ovarian Cancer N Diabetes N Pulmonary (TB, Asthma) N Hepatitis/Liver Disease N No Past Medical History N Eczema N Urinary Tract Infection N Abuse/Domestic Violence N Asthma N Trauma/Violence N Depression/ depression N Heart Disease N Pre-Eclampsia N Hypertension Y Osteoporosis N Thrombophilias N Gynecological History Statement/Question Response Abnormal Pap N Date of Last Mammogram 07/27/2023 Flow Heavy Date of LMP 03/18/2025 On BCP's at Conception? N Was last menstrual period normal N STIs/STDs N HPV Vaccine N Duration of Flow (days) Current Control Method Sterilizati on Age at First Child 18 Are cycles usually normal N Date of Last Colonoscopy 06/26/2022 Sexually Active? Y Menses Monthly N Age of first menstrual cycle 15 Date of Last Pap Smear 07/27/2023 Sexual Problems? N LMP Approximate Obstetrics History GPAL:G 4 P 4 0 0 4 Type Value Full Term 4 Living 4 Total 4 Past Encounters Encounter ID Performer Location Encounter Start Date Encounter Closed Date Diagnosis/Indication Diagnosis SNOMED-CT Code Diagnosis ICD10 Code Diagnosis IMO Codes Diagnosis Note [id number] Cecilia Wong , [facility] [address] [address] 10/11/2023 12:24:16 10/12/2023 09:55:14 Mechanical complication of intrauterine contraceptive device 200916166 T83.39XA Evaluation for IUD Mirena Removal.Ce rvix completely stenotic and also very friable.ST D screen sent-but reports monogamous .Discussed need for hysterosco py for removal but will await US results to determine if any other issues present and update labs to see if any further IUD or other is required.M lAivia consult for these things.Opt s for Female preference .Health Hx was reviewed and updated as reported in chart. Time spent in visit is a total of 30mins with at least 50% of visit consisting of counseling and review of plan of care. Menopausal symptom 45694 002 N95.1 [id number] ALESSANDRA MARTIN MD [place] [address] [address] 10/18/2023 15:30:15 10/20/2023 13:41:05 Intrauterine contraceptive device in situ 898524836 Z97.5 - Mirena placed 8 years ago- patient desires removal, failed in office removal x2- r/b of hysterosco pic IUD removal discussed with patient, who agrees to proceed- declines IUD replacemen t or other form of hormonal control, would like tubal ligation; discussed r/b including permanence of procedure. Discussed that this will not have any effect on her bleeding; given premenopau lis bloodwork, would expect some continued menses. Patient voices understand ing. Tubal papers signed today- will schedule for bilateral salpingect cris, hysterosco py and IUD removal; plan for premedicat ion with cytotec 200mcg vaginally given stenotic cervix [id number] ALESSANDRA MARTIN MD [facility] [address] [address] 12/18/2023 10:01:46 12/18/2023 11:42:45 Postoperative visit 467651759 Z48.89 - s/p bilateral salpingect cris and hysterosco pic IUD removal- doing well, meeting post op milestones - discussed likely irregular bleeding now that she is perimenopa usal and off hormonal control; patient to call if bleeding worsens- rtc 6-12 months for WWE unless needed earlier Fallopian tube excision 453525404 Z40.03 Mechanical complication of intrauterine contraceptive device 890935023 T83.39XD [id number] ALESSANDRA MARTIN MD [place] [address] [address] 04/11/2025 11:26:11 04/11/2025 14:02:18 Gynecologic examination 32210784 Z01.419 [id number] [facility] woman care- Cervical cancer screening: Pap smear not indicated (next 2028)- Breast cancer screening: mammogram ordered- HPV immunizati on: does not qualify- STD testing: declined- hereditary cancer screening: does not qualify for testing Irregular periods 083778 07 N92.6 09834 - patient reports q3 week heavy periods since IUD removal- likely due to perimenopa use- discussed PO progestero ne, IUD replacemen t, and ablation; r/b of each discussed- patient would like to try PO progestero ne- call clinic if bleeding is still bothersome Health Concerns Section Related Observation LastModified by Organization Detai ls LastModified Time None Recorded Concern Status LastModified by Organization Details LastModified Time None Recorded Advance Directives Directive None Recorded Payers Insurance Date Sequence Insurance Name Policy Number Policy Tavares Covered Member ID Tavares Member ID Guarantor Name 06/10/2025 1 [facility] - DOS ON OR AFTER 20 (MEDICAID REPLACEMENT - HMO) Heavenly Curtis [id number] Heavenly Curtis Notes Date Note Type Note Provider Name and Address Organization Details Recorded Time 4 text/html Heavenly is a 53yo perimenopausal female here today discuss removal of Mirena IUD.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 Health Hx was reviewed and updated as reported in chart. Cecilia Wong, AILYN- [address], [place], [address], [facility] 10/11/2023 18:28:33 4 text/html Patient presents for consultation for hysteroscopic IUD removal. In office removal attempted x2 without success due to missing strings and stenotic cervix. Mirena IUD placed 8 years ago. Had one episode of heavy uterine bleeding last month, usually just spotting with IUD. Would like tubal ligation for contraception after removal of IUD. Recent labwork indicates patient is not yet menopausal, FSH 7.7. PSH significant for laparoscopic cholecystectomy. PMH: hypertension, depression. ALESSANDRA MARTIN MD [address], [place], [address], [facility] 10/19/2023 21:42:29 4 text/html S/p bilateral salpingectomy and hysteroscopic IUD removal on 12/10. Patient doing well, no complaints. Tolerating general diet. Denies nausea or vomiting. No shortness of breath or chest pain. Ambulating. No drainage from incisions, umbilical incision slightly irritated by pant waistline. Minimal vaginal bleeding. ALESSANDRA MARTIN MD [address], [place], [address], [facility] 12/18/2023 11:42:19 5 text/html Annual GYNReported by PatientROS as noted in the HPI Presents today for her annual well-woman exam. Denies abnormal vaginal discharge. She is sexually active and denies dyspareunia. She is using tubal ligation for contraception, and she states that she is satisfied with this method. She has not noticed any changes or masses in her breasts. Having more irregular periods, every 3 weeks. Wearing adult diapers because of heavy flow. Would like to discuss medical management. ALESSANDRA MARTIN MD [address], [place], [address], [facility] 04/11/2025 13:59:19 5 text/html Beer - Abnormal BleedingReported by Patient Overnight3 blood transfusionone month Overnight3 blood transfusionone monthchanging every [address] [facility] Not [facility] Not Available Not Available OBGyn Episode Ob Episode Information Episode Created Date Number of Fetuses Patient Bloodtype Patient rh Status Prepregnancy Weight lbs Domestic Partner Domestic Partner Phone Father Name Electrical Supervisor Status 10/11/19 24 1 CLOSED Fetus Data First Name Last Name Admitted to NICU Weight (g) Sex Living Outcome Pediatric Complications Fetus ID Race Codes Race Delivery Type 3458.63 9 M Full Term [id number] Vaginal Delivery Luis Alfredo Calculation Initial Luis Alfredo Date Initial Exam Date Initial Exam Provider Initial Ultrasound Date Last Menstrual Period Date Ultra Sound Weeks Gestation 0 Eighteen To Twenty Week Luis Alfredo Update Ultra Sound Date Fundal Height At Umbil Quickening Date Ultra Sound Latest Weeks Gestation Final Luis Alfredo Confirmed By Final Luis Alfredo Confirmed Date Final Luis Alfredo Date Ultra Sound Latest Days Gestation 0 0 Menstrual History Last Menstrual Date Menses Monthly On Bcp Conception Prior Menses Frequency Hcg Plus Date Menarche Onset Age Delivery Information Delivery Date Delivery Type Labor Anesthesia Weeks Gestation Incision Type Labor Labor Length Hrs Delivered By Post Complications Tubal Sterilization Discharge Date Comments 4 40 Discharge Information Feeding Method Contraceptive Method Maternal HG B and HCT Levels Ob Episode Information Episode Created Date Number of Fetuses Patient Bloodtype Patient rh Status Prepregnancy Weight lbs Domestic Partner Domestic Partner Phone Father Name Electrical Supervisor Status 10/11/19 24 1 CLOSED Fetus Data First Name Last Name Admitted to NICU Weight (g) Sex Living Outcome Pediatric Complications Fetus ID Race Codes Race Delivery Type 4025.62 9 F Full Term [id number] Vaginal Delivery Luis Alfredo Calculation Initial Luis Alfredo Date Initial Exam Date Initial Exam Provider Initial Ultrasound Date Last Menstrual Period Date Ultra Sound Weeks Gestation 0 Eighteen To Twenty Week Luis Alfredo Update Ultra Sound Date Fundal Height At Umbil Quickening Date Ultra Sound Latest Weeks Gestation Final Luis Alfredo Confirmed By Final Luis Alfredo Confirmed Date Final Luis Alfredo Date Ultra Sound Latest Days Gestation 0 0 Menstrual History Last Menstrual Date Menses Monthly On Bcp Conception Prior Menses Frequency Hcg Plus Date Menarche Onset Age Delivery Information Delivery Date Delivery Type Labor Anesthesia Weeks Gestation Incision Type Labor Labor Length Hrs Delivered By Post Complications Tubal Sterilization Discharge Date Comments 0 40 Discharge Information Feeding Method Contraceptive Method Maternal HG B and HCT Levels Ob Episode Information Episode Created Date Number of Fetuses Patient Bloodtype Patient rh Status Prepregnancy Weight lbs Domestic Partner Domestic Partner Phone Father Name Electrical Supervisor Status 10/11/19 24 1 CLOSED Fetus Data First Name Last Name Admitted to NICU Weight (g) Sex Living Outcome Pediatric Complications Fetus ID Race Codes Race Delivery Type [phone] F Full Term [id number] Vaginal Delivery Luis Alfredo Calculation Initial Luis Alfredo Date Initial Exam Date Initial Exam Provider Initial Ultrasound Date Last Menstrual Period Date Ultra Sound Weeks Gestation 0 Eighteen To Twenty Week Luis Alfredo Update Ultra Sound Date Fundal Height At Umbil Quickening Date Ultra Sound Latest Weeks Gestation Final Luis Alfredo Confirmed By Final Luis Alfredo Confirmed Date Final Luis Alfredo Date Ultra Sound Latest Days Gestation 0 0 Menstrual History Last Menstrual Date Menses Monthly On Bcp Conception Prior Menses Frequency Hcg Plus Date Menarche Onset Age Delivery Information Delivery Date Delivery Type Labor Anesthesia Weeks Gestation Incision Type Labor Labor Length Hrs Delivered By Post Complications Tubal Sterilization Discharge Date Comments 5 40 Discharge Information Feeding Method Contraceptive Method Maternal HG B and HCT Levels Ob Episode Information Episode Created Date Number of Fetuses Patient Bloodtype Patient rh Status Prepregnancy Weight lbs Domestic Partner Domestic Partner Phone Father Name Electrical Supervisor Status 10/11/19 24 1 CLOSED Fetus Data First Name Last Name Admitted to NICU Weight (g) Sex Living Outcome Pediatric Complications Fetus ID Race Codes Race Delivery Type [phone] [phone] F Full Term [id number] Vaginal Delivery Luis Alfredo Calculation Initial Luis Alfredo Date Initial Exam Date Initial Exam Provider Initial Ultrasound Date Last Menstrual Period Date Ultra Sound Weeks Gestation 0 Eighteen To Twenty Week Luis Alfredo Update Ultra Sound Date Fundal Height At Umbil Quickening Date Ultra Sound Latest Weeks Gestation Final Luis Alfredo Confirmed By Final Luis Alfredo Confirmed Date Final Luis Alfredo Date Ultra Sound Latest Days Gestation 0 0 Menstrual History Last Menstrual Date Menses Monthly On Bcp Conception Prior Menses Frequency Hcg Plus Date Menarche Onset Age Delivery Information Delivery Date Delivery Type Labor Anesthesia Weeks Gestation Incision Type Labor Labor Length Hrs Delivered By Post Complications Tubal Sterilization Discharge Date Comments 9 40 passed from [facility] Discharge Information Feeding Method Contraceptive Method Maternal HG B and HCT Levels
--- OUTSIDE RECORDS SUMMARY | 2025-06-12 15:32 | XMS_ITS | Continuity of Care Document ---
Author Organization [facility] [place] Address [address] [place] [address] Care Team Providers Care Blindstitch Lining Feller Name Role Phone BAMBI FRANK Primary Care Provider Assessment Encounter Date Assessment Date Assessment LastModified by Organization Details LastModified Time 04/11/2025 04/11/2025 Annual gynecological exam performed. Patient will come back in a year unless there are new symptoms. [email or web address] Not available 04/11/2025 11:34:52 Plan of Treatment Reminders Order Date Submit Date Provider Last Modified By Organization Details Last Modified Time Details Appointments None recorded. Lab None recorded. Referral None recorded. Procedures None recorded. Surgeries None recorded. Imaging MAMMO, screening, digital, bilateral 2024 025 [facility] (Imaging), [address] [place], [address], 04:07:52 Medication Orders norethindro ne acetate 5 mg tablet 2024 025 [id number] [id number], [address], [place], [address], 13:58:59 Patient TargetsNo targets recorded. Patient InstructionsNo instructions recorded. Reason for Referral None Reported. Problems Name Problem SNOMED Code Status Onset Date Resolution Date Notes Provider Name and Address Organization Details Recorded Time Essential hypertension 31212776 Active 2023 ALESSANDRA MARTIN MD [address], [place], [address], [facility] 21:13:06 Depressive disorder 08983055 Active 2023 ALESSANDRA MARTIN MD [address], [place], [address], [facility] 21:13:18 Problem Notes None recorded. Procedures Surgical History Date Name Laterality Status Provider Name and Address Organization Details Recorded Time 12/11/19 24 Hysteroscopy completed [facility] 12/18/2023 10:07:56 12/11/19 24 laparoscopic bilateral salpingo-oophorecto my completed [facility] 12/18/2023 10:08:09 07/27/19 24 Date of Last Pap Smear completed [facility] 10/11/2023 12:41:48 07/27/19 24 Date of Last Mammogram completed [facility] 10/11/2023 12:42:36 06/26/19 23 Date of Last Colonoscopy completed [facility] 10/11/2023 12:43:32 06/26/19 14 Cholecystectomy completed [facility] 10/11/2023 12:50:04 06/26/19 07 lithotripsy completed [facility] 10/11/2023 12:49:50 06/26/19 00 Carpal tunnel surgery completed [facility] 10/11/2023 12:49:13 Imaging Results None recorded. Procedure Notes None recorded. Medical Equipment None Reported. Allergies Allergen ID Allergen Name Allergen Category Reaction Reaction Severity Criticality Documentation Date Start Date Code Code System Note Provider Name and Address Organization Details Recorded Time 90977 codeine medicatio n Not available Not available high 04/11/2025 2007 RxNorm Jodee pennington [facility] 11:36:18 Medications Name Sig Start Date [...] Not Available No t Available amoxicillin 875 mg-potjhoana m clavulanate 125 mg tablet TAKE 1 [...] Updated DateTime 04/11/2025 162.56 cm 28.3 kg/m2 57142.74 g 143/80 mm[Hg] Jodee Nelson [facility] 04/11/2025 11:36:02 Social History Question Answer Notes LastModified by Organizat ion Details LastModified Time Tobacco Smoking Status Never Smoker Symone pennington, [facility] 10/11/2023 12:47:17 Are You Blind Or [...] Or The Highest Degree You Have Received? [id number] Information not available 10/11/2023 Are There Any [...] anxious, or unable to sleep at night)? [id number] Information not available 10/11/2023 Family History Relationship [...] ICD10 Code Diagnosis IMO Codes Diagnosis Note [id number] ALESSANDRA MARTIN MD [place] [address] [address] 04/11/2025 11:26:11 04/11/2025 14:02:18 Gynecologic examination [id number] Z01.419 [id number] [facility]- Cervical cancer screening: Pap smear not indicated (next 2028)- Breast cancer screening: mammogram ordered- HPV immunizati on: does not qualify- STD testing: declined- hereditary cancer screening: does not qualify for testing Irregular periods [id number] 07 N92.6 64803 - patient reports q3 week heavy periods [...] by Organization Details LastModified Time None Recorded Payers Encounter Date Sequence Insurance Name Policy Number Policy Tavares Covered Member ID Tavares Member ID Guarantor Name 04/11/2025 1 [facility] - DOS ON OR AFTER 20 (MEDICAID REPLACEMENT - HMO) Heavenly Ever [id number] Heavenly Curtis Notes Date Note Type Note Provider Name and Address Organization Details Recorded Time 04/11/2025 text/html Annual GYNReported by PatientROS as noted [...] discuss medical management. ALESSANDRA MARTIN MD [address], [place], [address], [facility] 04/11/2025 13:59:19 OBGyn Episode No OBEpisode recorded.
[2025-06-12 16:28] VITALS: BP 122/76; PULSE 108; RESP 18; TEMP 36.4; O2SAT 100
[2025-06-12] MEDS: ESTROGENS, CONJUGATED 25 MG/5 ML VIAL IV PUSH (16:57)
[2025-06-12] MEDS: WATER, STERILE FOR INJECTION 10 ML VIAL XX (16:59)
[2025-06-12 17:09] LABS: Hematocrit 23.4 % (37.0-47.0); Hemoglobin 7.2 g/dL (12.0-15.0); Mean Corpuscular HGB Conc 30.8 g/dl (32-36); Mean Corpuscular Hemoglobin 26.1 pg (26-34); Mean Corpuscular Volume 84.8 fl (80-100); Platelet Count Result 359 k/mm3 (150-375); Red Blood Count 2.76 M/mm3 (4.2-5.4); White Blood Count 13.8 K/mm3 (4.5-10.0)
[2025-06-12 20:21] VITALS: BP 127/71; PULSE 125; RESP 18; TEMP 37.6; O2SAT 98
[2025-06-12] MEDS: SIMVASTATIN 20 MG TABLET 40 MG PO (22:00)
[2025-06-12] MEDS: CYCLOBENZAPRINE HCL 10 MG TABLET PO (22:00)
[2025-06-13] MEDS: ESTROGENS, CONJUGATED 25 MG/5 ML VIAL IV PUSH ×2 (00:33→06:23)
[2025-06-13] MEDS: IBUPROFEN 600 MG TABLET PO (01:18)
[2025-06-13 05:11] VITALS: BP 102/66; PULSE 97; RESP 18; TEMP 36.7; O2SAT 99
[2025-06-13] MEDS: LOSARTAN POTASSIUM 50 MG TABLET PO (09:08)
[2025-06-13] MEDS: SERTRALINE HCL 50 MG TABLET 100 MG PO (09:08)
[2025-06-13] MEDS: FAMOTIDINE 20 MG TABLET 40 MG PO (09:08)
[2025-06-13] MEDS: MONTELUKAST SODIUM 10 MG TABLET PO (09:08)
--- NOTE | 2025-06-13 09:08 | PM.IMHP2 ---
H&P: HPI History of Present Illness Date/Time: 06/13/25 09:08 Chief Complaint: vaginal bleeding Narrative: This patient is a 55-year-old female with uncontrolled vaginal bleeding. She has bled down to hemoglobin of 7. She is admitted for IV estrogen therapy. Approximately 2 doses of IV conjugated estrogens stop the bleeding. We discussed definitive treatment of her bleeding. We were considering endometrial ablation. She will be discharged home on 2 mg of estradiol. She will continue this until we perform the endometrial ablation. Review of Systems Review of Systems: All systems reviewed & are unremarkable except as noted in HPI and below Constitutional: Constitutional: Denies chills, Denies fatigue, Denies fever(s) and Denies weakness Eyes: Eyes: Denies blurry vision, Denies change in vision, Denies loss of peripheral vision, Denies loss of vision, Denies other visual disturbances and Denies eye pain ENT: Denies vertigo, Denies dizziness, Denies hearing loss, Denies mouth pain, Denies nasal obstruction, Denies neck mass and Denies neck pain Cardiovascular: Cardiovascular: Denies chest pain, Denies diaphoresis, Denies syncope, Denies leg edema and Denies dyspnea Respiratory: Respiratory: Denies chest congestion, Denies cough, Denies hemoptysis, Denies dyspnea and Denies wheezing Gastrointestinal: Gastrointestinal: Denies abdominal pain, Denies constipation, Denies diarrhea, Denies nausea and Denies vomiting Genitourinary: Genitourinary: Denies hematuria, Denies change in libido, Denies nocturia, Denies genital lesions, Denies flank pain and Denies urinary urgency Musculoskeletal: Musculoskeletal: Denies abnormal gait, Denies back pain, Denies myalgias, Denies arthralgias, Denies joint swelling, Denies muscle weakness and Denies neck pain Integumentary/Breasts: Skin/Breast: Denies swelling, Denies breast pain, Denies breast mass, Denies dry skin, Denies nipple discharge, Denies unusual bruising and Denies jaundice Neurologic: Denies Neuro-related abnormal movements, Denies Abnormal speech present, Denies abnormal gait, Denies behavioral changes, Denies confusion, Denies vertigo, Denies dizziness, Denies syncope, Denies loss of vision, Denies memory loss, Denies convulsions and Denies weakness Psychiatric: Psychiatric: Denies abnormal sleep pattern, Denies behavioral changes, Denies change in libido, Denies confusion, Denies depression, Denies anhedonia and Denies memory loss Endocrine: Endocrine: Reports no additional endocrine complaints, Denies change in libido and Denies fatigue Hematologic/Lymphatic: Hematologic/Lymphatic: Reports no additional hematologic/lymphatic complaints Allergic/Immunologic: Allergic/Immunologic: Reports no additional allergic/immunologic complaints and Denies wheezing PMFSH Social History Social History Smoking status: Never smoker Alcohol intake: never Substance use: never Substance use type: does not use Lack of Transportation: No Lack of Food: Never True Current Housing: I Have Housing Concerned About Future Housing: No Difficulty Paying Gas/Electric Bills: No Difficulty Paying for Meds: No Currently Unemployed: No Education: High School Diploma/GED Difficulty w/ Childcare or Family Care: No Living arrangements: with family Spiritual care concerns: No Meds Home Medications and Allergies Home Medications ?Medication ?Instructions ?Recorded ?Confirmed ?Type cyclobenzaprine 10 mg tablet 10 mg PO HS 12/07/23 06/12/25 History losartan 50 mg tablet 50 mg PO DAILY 12/07/23 06/12/25 History montelukast 10 mg tablet 10 mg PO DAILY 12/07/23 06/12/25 History sertraline 100 mg tablet 100 mg PO DAILY 12/07/23 06/12/25 History simvastatin 40 mg tablet 40 mg PO HS 12/07/23 06/12/25 History famotidine 40 mg tablet 40 mg PO DAILY 06/12/25 06/12/25 History medroxyprogesterone 10 mg tablet 10 mg PO DAILY 06/12/25 06/12/25 History norethindrone acetate 5 mg tablet 5 mg PO DAILY 06/12/25 06/12/25 History tranexamic acid 650 mg tablet 650 mg PO TID 06/12/25 06/12/25 History Allergies Allergy/AdvReac Type Severity Reaction Status Date / Time codeine Allergy Unknown Unknown Verified 06/12/25 15:35 Vital Signs Vital Signs - 24 hr 06/12/25 16:28 06/12/25 20:21 06/12/25 22:00 Temperature 97.5 F L 99.6 F Pulse Rate 108 H 125 H Respiratory Rate 18 18 Blood Pressure 122/76 127/71 Pulse Oximetry 100 98 Oxygen Delivery Room Air 06/13/25 05:11 Temperature 98.1 F Pulse Rate 97 Respiratory Rate 18 Blood Pressure 102/66 Pulse Oximetry 99 Oxygen Delivery Exam Const: General: cooperative, healthy appearing, comfortable and no acute distress Orientation/consciousness: oriented to person, oriented to place and oriented to time HENMT: Head: normal to inspection Ears: external ears normal Face/Nose/Sinus: Normal external nose present and normal facial exam Face and sinus: normal facial exam Eyes: General: appearance normal, both eyes and all related structures Neck: Neck: normal visual inspection, trachea midline and supple Resp: Auscultation: clear to auscultation bilaterally, no crackles, no rales, no rhonchi and no wheezes Cardio: Rate: regular rate Rhythm: regular rhythm Heart sounds: no click, no murmurs and no rubs GI: GI Palp: No abdominal tenderness, No Soft to palpation, No Tenderness to palpation present (GI) and No Palpable mass present Auscultation: normal bowel sounds Skin: General skin exam: normal color and no rashes or lesions noted Neuro: General: oriented to person, oriented to place and oriented to time Extrem: General: normal to inspection, no joint enlargement, no clubbing, cyanosis or edema, no pedal edema and no calf tenderness Psych: Appearance: grossly normal Mental Status: mental status grossly normal Speech and movement: Normal speech and movement present Results Labs Labs: Short CBC 06/12/25 Range/Units 16:56 WBC 13.8 H (4.5-10.0) K/mm3 Hgb 7.2 L (12.0-15.0) g/dL Hct 23.4 L (37.0-47.0) % Plt Count 359 (150-375) k/mm3 Assessment and Plan Assessment and plan (1) Vaginal bleeding: Code(s): N93.9 - Abnormal uterine and vaginal bleeding, unspecified Status: Acute Plan This patient is a 55-year-old female with uncontrolled vaginal bleeding. She has bled down to hemoglobin of 7. She is admitted for IV estrogen therapy. Approximately 2 doses of IV conjugated estrogens stop the bleeding. We discussed definitive treatment of her bleeding. We were considering endometrial ablation. She will be discharged home on 2 mg of estradiol. She will continue this until we perform the endometrial ablation.
--- OUTSIDE RECORDS SUMMARY | 2025-06-13 12:01 | XMS_ITS | Clinical Summary ---
Author Organization [facility] Address [address] [place] [address] Care Team Providers Care Marketing Communications Manager Name Role Phone [facility] Primary Care Provider Source Comments [facility],non-owned Affiliates and Associated Physician Practices is amultiple site organization consisting of ambulatory clinics and hospital sitesin [place], [place], [place] and [place]. This disclosure is being madepursuant to the Care Everywhere program and may not contain all information available regarding this patient. Last updated 18.[facility] Allergies No known active allergies Medications * [...] Department Care Team Description 06/05/2025 9:11 PM DIE DEVELOPER - 06/06/2025 4:43 PM DIE DEVELOPER Hospital Encounter [facility] 3E MED/ONC [address] [place] [address] Dina Guillaume MD Gynecology Discharge Disposition: Home [...] more drinks on one occasion? Never 06/05/2025 [facility] - Occupational Stress [...] any time in the past 12 m [facility], were you homeless or living in a jail (including now)? No 06/05/2025 [facility] Utilities Answer Date Recorded In the [...] Comments Blood Pressure 117/84 06/06/2025 12:17 PM DIE DEVELOPER Pulse 116 06/06/2025 12:17 PM DIE DEVELOPER Temperature 36.9 C (98.4 F) 06/06/2025 12:17 PM DIE DEVELOPER Respiratory Rate 18 06/06/2025 12:17 PM DIE DEVELOPER Oxygen Saturation 95% 06/06/2025 12:17 PM DIE DEVELOPER Inhaled Oxygen Concentration - - Weight 77.2 kg (170 lb 4.8 oz) 06/05/2025 9:23 P M DIE DEVELOPER Height 165 cm (5' 4.96) 06/05/2025 9:23 PM DIE DEVELOPER Body Mass Index 28.37 06/05/2025 9:23 PM DIE DEVELOPER Plan of Treatment Health Maintenance Due Date [...] W AUTO DIFFERENTIAL Routine 06/06/2025 11:52 AM DIE DEVELOPER US PELVIS W TRANSVAG NON OB Routine 06/06/2025 10:26 AM DIE DEVELOPER Vaginal bleeding TYPE + SCREEN PANEL STAT 06/06/2025 2 :17 AM DIE DEVELOPER PREPARE RBC LEUKOREDUCED UNIT Routine 06/06/2025 2:17 AM DIE DEVELOPER BLOOD TYPE VERIFICATION Routine 06/06/2025 12:25 AM DIE DEVELOPER COAGULATION PANEL W D-DIMER STAT 06/06/2025 12:25 AM DIE DEVELOPER CBC W/O DIFFERENTIAL AM Draw 06/06/2025 12:25 AM DIE DEVELOPER from Last 3 Months Results * (ABNORMAL) CBC W AUTO DIFFERENTIAL (06/06/2025 11:52 AM DIE DEVELOPER) WBC 12.1(H) 4.0 - 10.7 x10E9/L 06/06/2025 12:38 PM DIE DEVELOPER [facility] RBC Count 3.13(L) 3.90 - 5.20 x10E12/L 06/06/2025 12:38 PM DIE DEVELOPER [facility] Hemoglobin 8.2(L) 11.9 - 15.8 g/dL 06/06/2025 12:38 PM DIE DEVELOPER [facility] Hematocrit 25.2(L) 34.8 - 46.1 % 06/06/2025 12:38 PM DIE DEVELOPER [facility] MCV 80.5 80.0 - 98.0 fL 06/06/2025 12:38 PM DIE DEVELOPER [facility] MCH 26.2(L) 26.7 - 33.6 pg 06/06/2025 12:38 PM DIE DEVELOPER [facility] MCHC 32.5 31.7 - 36.3 g/dL 06/06/2025 12:38 PM DIE DEVELOPER [facility] RDW-CV 18.0(H) 11.3 - 14.8 % 06/06/2025 12:38 PM DIE DEVELOPER [facility] Platelet Count 273 150 - 420 x10E9/L 06/06/2025 12:38 PM DIE DEVELOPER [facility] MPV 10.1 7.8 - 11.4 fL 06/06/2025 12:38 PM DIE DEVELOPER [facility] Neutrophil % 73.8 41.0 - 74.0 % 06/06/2025 12:38 PM DIE DEVELOPER [facility] Lymphocyte % 17.7 17.0 - 47.0 % 06/06/2025 12:38 PM DIE DEVELOPER [facility] Monocyte % 6.8 3.0 - 11.0 % 06/06/2025 12:38 PM DIE DEVELOPER [facility] Eosinophil % 0.8 0.0 - 7.0 % 06/06/2025 12:38 PM DIE DEVELOPER [facility] Basophil % 0.2 0.0 - 1.6 % 06/06/2025 12:38 PM DIE DEVELOPER [facility] Immature Granulocytes % 0.7 0.0 - 1.0 % 06/06/2025 12:38 PM DIE DEVELOPER [facility] Neutrophil Absolute 8.90(H) 1.60 - 7.50 x10E9/L 06/06/2025 12:38 PM DIE DEVELOPER [facility] Lymphocyte Absolute 2.13 1.00 - 4.40 x10E9/L 06/06/2025 12:38 PM DIE DEVELOPER [facility] Monocyte Absolute 0.82 0.15 - 1.00 x10E9/L 06/06/2025 12:38 PM DIE DEVELOPER [facility] Eosinophil Absolute 0.10 0.00 - 0.60 x10E9/L 06/06/2025 12:38 PM DIE DEVELOPER [facility] Basophil Absolute 0.03 0.00 - 0.13 x10E9/L 06/06/2025 12:38 PM DIE DEVELOPER [facility] Blood BLOOD SPECIMEN / Unknown Lab Venipuncture / Unknown 06/06/2025 11:52 AM DIE DEVELOPER 06/06/2025 12:31 PM DIE DEVELOPER us Dina Guillaume MD LAB - HEMATOLOGY ORDERABLES Fin al Result Performing Organization Address City/State/[facility] Co de Phone Number [facility] [address] [phone] * US Pelvis W Transvag Non Ob (06/06/2025 10:26 AM DIE DEVELOPER) Anatomical Region Laterality Modality Pelvis Ultrasound 06/06/2025 10:3 4 AM DIE DEVELOPER Impressions 06/06/2025 10:37 AM DIE DEVELOPER IMPRESSION: Within normal limits. > Interpreting Provider: Alexsander Duggan MD on 06/06/2025 10:37 AM Narrative 06/06/2025 10:37 AM DIE DEVELOPER PROCEDURE: US PELVIS W TRANSVAG NON OB [...] transvaginal pelvic ultrasound was performed by the jigger operator with DICOM image capture. Grayscale images were [...] and transvaginal pelvic ultrasoundwas performed by the jigger operator with DICOM image capture. Grayscale images were [...] BLOOD CELL LEUKOREDUCED UNIT(S) (06/06/2025 7:21 AM DIE DEVELOPER) us Dina Guillaume MD NURSING - BLOOD PROD TRANSFUSIO N Final Result * PREPARE (CROSSMATCH) RBC UNIT(S), 1 Units (06/06/2025 2:17 AM DIE DEVELOPER) Unit Description AS1 LR PRBC [facility] Unit ABO A [facility] Unit Rh POS [facility] Product Number R02 [facility] Unit Donor # [id number] [facility] Unit Status transfused [facility] Product Code R3318S32 [facility] Blood Type Barcode 6200 [facility] Expiration Date [id number] [facility] Blood Bank BLOOD SPECIMEN / Unknown 06/06/2025 2:17 AM DIE DEVELOPER 06/06/2025 3:07 AM DIE DEVELOPER Dina Guillaume MD LAB - BLOOD BANK ORDERABLES Fin al Result Performing Organization Address City/[facility]/ZIP Co de Phone Number [facility] [address] [place] [address] * TYPE + SCREEN PANEL (06/06/2025 2:17 AM DIE DEVELOPER) ABO Rh A POS 06/06/2025 3:45 AM DIE DEVELOPER [facility] Comment:History checked. Antibody Screen NEG 3:45 AM DIE DEVELOPER [facility] Blood Bank BLOOD SPECIMEN / Unknown Lab Venipuncture / Unknown 06/06/2025 2:17 AM DIE DEVELOPER 06/06/2025 3:07 AM DIE DEVELOPER Dina Guillaume MD LAB - BLOOD BANK ORDERABLES Fin al Result Performing Organization Address [facility] Co de Phone Number [facility] [address] [place] [address] * BLOOD TYPE VERIFICATION (06/06/2025 12:25 AM DIE DEVELOPER) ABO Rh A POS 06/06/2025 3:3 4 AM DIE DEVELOPER [facility] Blood Bank BLOOD SPECIMEN / Unknown Lab Venipuncture / Unknown 06/06/2025 12:25 AM DIE DEVELOPER 06/06/2025 1:56 AM DIE DEVELOPER Dina Guillaume MD LAB - BLOOD BANK ORDERABLES Fin al Result Performing Organization Address City/[facility] Co de Phone Number [facility] [address] [place] [address], [place] [phone] * (ABNORMAL) COAGULATION PANEL W D-DIMER (06/06/2025 12:25 AM [facility]) PT 16.1(H) 12.1 - 14.8 sec 06/06/2025 2:21 AM [facility] INR 1.3(H) 0.9 - 1.1 06/06/2025 2:21 AM [facility] PTT 24.0 23.0 - 38.4 sec 06/06/2025 2:21 AM [facility] Fibrinogen 321 200 - 400 mg/dL 06/06/2025 2:21 AM [facility] D-Dimer 0.66(H) 0.27 - 0.50 ug/mL FEU 06/06/2025 2:21 AM [facility] Platelet Count 289 150 - 420 x10E9/L 06/06/2025 2:21 AM [facility] Blood BLOOD SPECIMEN / Unknown Lab Venipuncture / Unknown 06/06/2025 12:25 AM DIE DEVELOPER 06/06/2025 1:35 AM [facility] - 06/06/2025 2:21 AM [facility] Conventional Warfarin Anticoagulant Therapy INR Reference Range: [...] LAB - COAGULATION ORDERABLES Fi nal Result [facility] [address] [place] [address] * (ABNORMAL) CBC W/O DIFFERENTIAL (06/06/2025 12:25 AM [facility]) WBC 13.9(H) 4.0 - 10.7 x10E9/L 06/06/2025 1:44 AM [facility] RBC Count 2.74(L) 3.90 - 5.20 x10E12/L 06/06/2025 1:44 AM [facility] Hemoglobin 7.1(L) 11.9 - 15.8 g/dL 06/06/2025 1:44 AM [facility] Hematocrit 22.9(L) 34.8 - 46.1 % 06/06/2025 1:44 AM [facility] MCV 83.6 80.0 - 98.0 fL 06/06/2025 1:44 AM [facility] MCH 25.9(L) 26.7 - 33.6 pg 06/06/2025 1:44 AM [facility] MCHC 31.0(L) 31.7 - 36.3 g/dL 06/06/2025 1:44 AM [facility] RDW-CV 17.2(H) 11.3 - 14.8 % 06/06/2025 1:44 AM [facility] Platelet Count 285 150 - 420 x10E9/L 06/06/2025 1:44 AM [facility] MPV 10.7 7.8 - 11.4 fL 06/06/2025 1:44 AM [facility] Blood BLOOD SPECIMEN / Unknown Lab Venipuncture / Unknown 06/06/2025 12:25 AM DIE DEVELOPER 06/06/2025 1:35 AM [facility] us Dina Guillaume MD LAB - HEMATOLOGY ORDERABLES Fin al Result [facility] [address] [place] [address] from Last 3 Months Insurance [facility] * Guarantor: HOLLIS CURTIS Relation to Patient Date of Phone Billing Address Personal/Family [address], [place] [facility] SELF PAY NO INSURANCE Member Subscriber Plan / Payer (Ef fective for All Dates) Name:Hollis Curtis Member ID:Not on file Relation to Subscriber:Not on file Name:HOLLIS CURTIS Subscriber ID:Not on file Address: [address] [place] [address] Payer ID:Not on file Group ID:Not on file Type:Self Pay Address: [place], [place] * Guarantor: HOLLIS CURTIS Account Type Relation to Patient Date of Phone Billing Address Personal/Family [address], [place] [facility] SELF PAY NO INSURANCE Member Subscriber Plan / Payer (Ef fective for All Dates) Name:Hollis Curtis Member ID:Not on file Relation to Subscriber:Not on file Name:HOLLIS CURTIS Subscriber ID:Not on file Address: [address] [place] [address] Payer ID:Not on file Group ID:Not on file Type:Self Pay Address: [place], [place] * Guarantor: HOLLIS CURTIS Account Type Relation to Patient Date of Phone Billing Address Personal/Family [address] [place] [address] [facility] SELF PAY NO INSURANCE Member Subscriber Plan / Payer (Ef fective for All Dates) Name:Hollis Curtis Member ID:Not on file Relation to Subscriber:Not on file Name:HOLLIS CURTIS Subscriber ID:Not on file Address: [address] [place] [address] Payer ID:Not on file Group ID:Not on file Type:Self Pay Address: [place], [place] * Guarantor: HOLLIS CURTIS Account Type Relation to Patient Date of Phone Billing Address Personal/Family [address] [place] [address] Advance Directives * Full Code (Latest Code Status on File) Date Activated Date Inactivated Comments 06/05/2025 9:32 PM 06/06/2025 5:53 PM Care Teams Marketing Communications Manager Relationship Specialty Start Date End Date [facility] [address] [place] [address] PCP - General Family Medicine 06/05/25
--- OUTSIDE RECORDS SUMMARY | 2025-06-13 12:02 | XMS_ITS | Continuity of Care Document ---
Author Organization [facility] [place] Address [address] [place] [address] Care Team Providers Care Vice President Of Nursing Name Role Phone BAMBI FRANK Primary Care Provider [phone] Assessment No assessment recorded. Plan of Treatment Reminders Order Date Submit Date Provider Last Modified By Organization Details Last Modified Time Details Appointments None recorded. Lab CBC w/ auto diff [address] [facility] (Lab), [address] [place], [address], 5 09:16:29 hormone panel, serum or plasma [address] [facility] (Lab), [address] [place], [address], 5 09:16:30 Referral None recorded. Procedures None recorded. Surgeries None recorded. Imaging None recorded. Medication Orders None recorded. Patient TargetsNo targets recorded. Patient InstructionsNo instructions recorded. Reason for Referral None Reported. Problems Name Problem SNOMED Code Status Onset Date Resolution Date Notes Provider Name and Address Organization Details Recorded Time Essential hypertension 19498215 Active 2023 ALESSANDRA MARTIN MD [address], [place], [address], [facility] 4 21:13:06 Depressive disorder [id number] Active 2023 ALESSANDRA MARTIN MD [address], [place], [address], [facility] 4 21:13:18 Problem Notes None recorded. Procedures Surgical History Date Name Laterality Status Provider Name and Address Organization Details Recorded Time 12/11/19 24 Hysteroscopy completed [facility] 12/18/2023 10:07:56 12/11/19 24 laparoscopic bilateral salpingo-oophorecto my completed [facility] 12/18/2023 10:08:09 07/27/19 24 Date of Last Pap Smear completed [facility] 10/11/2023 12:41:48 07/27/19 24 Date of Last Mammogram completed [facility] 10/11/2023 12:42:36 06/26/19 23 Date of Last Colonoscopy completed [facility] 10/11/2023 12:43:32 06/26/19 14 Cholecystectomy completed [facility] 10/11/2023 12:50:04 06/26/19 07 lithotripsy completed [facility] 10/11/2023 12:49:50 06/26/19 00 Carpal tunnel surgery completed [facility] 10/11/2023 12:49:13 Imaging Results None recorded. Procedure Notes None recorded. Medical Equipment None Reported. Allergies Allergen ID Allergen Name Allergen Category Reaction Reaction Severity Criticality Documentation Date Start Date Code Code System Note Provider Name and Address Organization Details Recorded Time 52800 codeine medicatio n Not available Not available high 04/11/2025 7416 RxNorm Jodee Nelson [facility] 5 11:36:18 Medications Name Sig Start Date Stop [...] Updated DateTime 06/11/2025 162.56 cm 28.3 kg/m2 65720.74 g 120/80 mm[Hg] Jodee Nelson [facility] 06/11/2025 12:17:29 Social History Question Answer Notes LastModified by Organizat ion Details LastModified Time Tobacco Smoking Status Never Smoker Symone pennington, [facility] 10/11/2023 12:47:17 Are You Blind Or [...] Or The Highest Degree You Have Received? [id number] Information not available 10/11/2023 Are There Any [...] anxious, or unable to sleep at night)? [id number] Information not available 10/11/2023 Family History Relationship [...] (Food, seasonal, environmental ) N Other N Breast Cancer N Drug/Latex Allergies/Reactions N Blood Transfusion N Dermatologic Disorders N Lung Disease N [...] ICD10 Code Diagnosis IMO Codes Diagnosis Note [id number] CONSTANTIN Russell [place] [address] [address] 06/11/2025 11:57:35 06/12/2025 09:46:44 Abnormal uterine bleeding [id number] 9100 N93.9 [id number] Discussed abnormal uterine bleeding and possible causesCont inue oral TXA for a total of 5 days along with medroxypro gesterone 10mg dailyrevie wed recent pelvic ultrasound , wnlrepeat CBC todaydiscu ssed management options for AUB and scheduled for MD consult to discuss surgical options - will need endometria l sampling.s cheduled to RTC for MD Consult this wkstrict ED precaution s reviewed Time spent in visit is a total of 30 mins with at least 50% of visit consisting of counseling and review of plan of care. Health Concerns Section Related Observation LastModified by Organization Detai ls LastModified Time None Recorded Concern Status LastModified by Organization Details LastModified Time None Recorded Payers Encounter Date Sequence Insurance Name Policy Number Policy Tavares Covered Member ID Tavares Member ID Guarantor Name 06/11/2025 1 [facility] - DOS ON OR AFTER 20 (MEDICAID REPLACEMENT - HMO) Heavenly Curtis [id number] Heavenly Curtis Notes Date Note Type Note Provider Name and Address Organization Details Recorded Time 5 text/html Beer - Abnormal BleedingReported by Patient 55yo [id number] today for evaluation of abnormal uterine bleeding. Symptoms started 2 months ago (bleeding on and off since). Seen at [facility] last week d/t worsening symptoms. Hgb 6.5 on admission, transfused x 3 and was given IV TXA. Stayed overnight and hgb 8 upon discharge. She is currently taking PO medroxyprogesterone 10mg daily and on day 2 of oral TXA. Her bleeding has slowed, but she continues to change pads every 2-3 hours. She denies any current SOB, dizziness, etc. Her pelvic ultrasound was normal at [facility]. Prior to this episode of bleeding her periods were irregular (every 1-3 months), with episodes of prolonged bleeding 2-3 times over the past 2 yrs. Last pap 2023 wnlBS for BC Denise Coburn, WHAILYN [address], [place], [address], [facility] 06/12/2025 09:43:25 OBGyn Episode No OBEpisode recorded.
== END 2025-06-13 11:05 | disposition home or self-care (01) ==
PROVIDERS: Admitting Provider Obstetrics & Gynecology; PCP Internal Medicine Gastroenterology; Visit Provider Obstetrics & Gynecology
DX: N93.9 Abnormal uterine and vaginal bleeding, unspecified (principal); Z79.3 Long term (current) use of hormonal contraceptives; Z79.1 Long term (current) use of non-steroidal anti-inflammatories (NSAID)
CPT/HCPCS: 36415; 76830; 76856; 85027; 96374; 96376; A9270; G0378; G0379; J1410